=== PATIENT | female | born 1965 | race African-American/Black ===

== ENCOUNTER 2020-11-27 15:33 | Outpatient (CLI) | payer OTHER | END 2020-11-27 15:34 | disposition home or self-care (01) | LOC: DTY/OP 15:33 | PROVIDERS: ATTEND Surgery | DX: E66.01 Morbid (severe) obesity due to excess calories (principal) | CPT/HCPCS: 97802 ==

== ENCOUNTER 2020-12-01 14:48 | Outpatient (CLI) | payer OTHER | END 2020-12-01 14:49 | disposition home or self-care (01) | LOC: DTY/OP 14:48 | PROVIDERS: ATTEND Surgery | DX: E66.01 Morbid (severe) obesity due to excess calories (principal) | CPT/HCPCS: 97802 ==

== ENCOUNTER 2020-12-03 15:16 | Outpatient (CLI) | payer OTHER | END 2020-12-03 15:17 | disposition home or self-care (01) | LOC: DTY/OP 15:16 | PROVIDERS: ATTEND Surgery | DX: E66.01 Morbid (severe) obesity due to excess calories (principal) | CPT/HCPCS: 97802 ==

== ENCOUNTER 2020-12-11 09:48 | Outpatient (CLI) | payer OTHER | END 2020-12-11 09:49 | disposition home or self-care (01) | LOC: DTY/OP 09:48 | PROVIDERS: ATTEND Surgery | DX: E66.01 Morbid (severe) obesity due to excess calories (principal) | CPT/HCPCS: 97802 ==

== ENCOUNTER 2020-12-14 15:17 | Outpatient (CLI) | payer OTHER | END 2020-12-14 15:18 | disposition home or self-care (01) | LOC: DTY/OP 15:17 | PROVIDERS: ATTEND Surgery | DX: E66.01 Morbid (severe) obesity due to excess calories (principal) | CPT/HCPCS: 97802 ==

== ENCOUNTER 2020-12-23 11:24 | Outpatient (CLI) | payer OTHER | END 2020-12-23 11:25 | disposition home or self-care (01) | LOC: DTY/OP 11:24 | PROVIDERS: ATTEND Surgery | DX: E66.01 Morbid (severe) obesity due to excess calories (principal) | CPT/HCPCS: 97802 ==

== ENCOUNTER 2020-12-25 15:14 | Outpatient (CLI) | payer OTHER | END 2020-12-25 15:15 | disposition home or self-care (01) | LOC: DTY/OP 15:14 | PROVIDERS: ATTEND Surgery | DX: E66.01 Morbid (severe) obesity due to excess calories (principal) | CPT/HCPCS: 97802 ==

== ENCOUNTER 2020-12-29 13:44 | Outpatient (CLI) | payer OTHER | END 2020-12-29 13:45 | disposition home or self-care (01) | LOC: DTY/OP 13:44 | PROVIDERS: ATTEND Surgery | DX: E66.01 Morbid (severe) obesity due to excess calories (principal) | CPT/HCPCS: 97802 ==

== ENCOUNTER 2020-12-31 14:13 | Outpatient (CLI) | payer OTHER | END 2020-12-31 14:14 | disposition home or self-care (01) | LOC: DTY/OP 14:13 | PROVIDERS: ATTEND Surgery | DX: E66.01 Morbid (severe) obesity due to excess calories (principal) | CPT/HCPCS: 97802 ==

== ENCOUNTER 2021-01-08 14:49 | Outpatient (CLI) | payer OTHER | END 2021-01-08 14:50 | disposition home or self-care (01) | LOC: DTY/OP 14:49 | PROVIDERS: ATTEND Surgery | DX: E66.01 Morbid (severe) obesity due to excess calories (principal) | CPT/HCPCS: 97802 ==

== ENCOUNTER 2021-02-04 09:01 | Outpatient (CLI) | payer OTHER, BC | END 2021-02-04 09:02 | disposition home or self-care (01) | LOC: LABBT 09:01 | PROVIDERS: ATTEND Surgery | DX: Z01.818 Encounter for other preprocedural examination (principal); E66.01 Morbid (severe) obesity due to excess calories; Z20.822 Contact with and (suspected) exposure to COVID-19 | CPT/HCPCS: 71046; 80053; 83036; 84703; 85025; 87635; 93005; 93010; U0003; U0005 ==

== ENCOUNTER 2021-02-04 11:45 | Inpatient (IN) | payer OTHER ==
[2021-02-09] MEDS ORDERED: Acetaminophen 500 MG TAB ONE (09:18)
[2021-02-09] MEDS ORDERED: Heparin 5,000 UNITS/ML VIAL ONE (09:49)
[2021-02-09] MEDS ORDERED: Bupivacaine 0.25% HCL 30 ML VIAL ONE (10:26)
[2021-02-09] MEDS ORDERED: XYLOCAINE 2%-EPI 1:100,000 20 ML VIAL ONE (10:26)
[2021-02-09] MEDS ORDERED: Midazolam HCl 2 mg/2 ml Vial ONE ×2 (10:28→10:43)
[2021-02-09] MEDS ORDERED: Fentanyl 250 MCG/5 ML VIAL ONE (10:28)
[2021-02-09] MEDS ORDERED: SUGAMMADEX SODIUM 500 MG/5 ML VIAL ONE (10:28)
[2021-02-09] MEDS ORDERED: Dexamethasone 20 MG/5 ML VIAL ONE (10:50)
[2021-02-09] MEDS ORDERED: PHENYLEPHRINE-NS 100 MCG/ML 10 ML SYRINGE ONE (10:50)
[2021-02-09] MEDS ORDERED: Lidocaine 1% PF 5 ML VIAL ONE (10:50)
[2021-02-09] MEDS ORDERED: Ondansetron PF 4 MG/2 ML Vial ONE (10:50)
[2021-02-09] MEDS ORDERED: PROPOFOL 200 MG/20 ML VIAL ONE (10:50)
[2021-02-09] MEDS ORDERED: Rocuronium Bromide 10 MG/ML (10ML VIAL) ONE (10:50)
[2021-02-09] MEDS ORDERED: ePHEDrine 50 MG/ML VIAL ONE ×2 (10:50→11:24)
[2021-02-09] MEDS ORDERED: Glycopyrrolate 0.2 MG/ML 5 ML SYRINGE ONE (10:50)
[2021-02-09] MEDS ORDERED: Ketorolac Tromethamine 30 MG/ML VIAL ONE ×2 (10:50→17:57)
[2021-02-09] MEDS ORDERED: Propofol 500 MG/50 ML VIAL ONE (11:24)
[2021-02-09] MEDS ORDERED: Ondansetron HCl/PF 4 MG/2 ML Vial IVP PRN ×2 (12:26→13:07)
[2021-02-09] MEDS ORDERED: Promethazine HCl 25 MG/ML VIAL SLOW IVP PRN ×2 (12:26→13:07)
[2021-02-09] MEDS ORDERED: Promethazine HCl 25 MG/ML VIAL IM PRN ×4 (12:26→18:37)
[2021-02-09] MEDS ORDERED: diphenhydrAMINE 50 MG/ML VIAL IM PRN (13:07)
[2021-02-09] MEDS ORDERED: Naloxone HCl 0.4 mg/ml Vial IV PRN (13:07)
[2021-02-09] MEDS ORDERED: Ketorolac Tromethamine 30 MG/ML VIAL IVP PRN (13:07)
[2021-02-09] MEDS ORDERED: diphenhydrAMINE 50 MG/ML VIAL IVP PRN ×2 (13:07→18:37)
[2021-02-09] MEDS ORDERED: fentaNYL Citrate/PF 2,000 MCG in Sodium Chloride 0.9% 60 ML IV PRN (13:07)
[2021-02-09] MEDS ORDERED: Ondansetron PF 4 MG/2 ML Vial IVP PRN ×2 (13:07→18:37)
[2021-02-09] MEDS ORDERED: Zolpidem Tartrate 5 MG TAB PO PRN (13:07)
[2021-02-09] MEDS ORDERED: diphenhydrAMINE 25 MG CAP PO PRN (13:07)
[2021-02-09] MEDS ORDERED: Communication Order-Pharmacy FS SCH (13:15)
[2021-02-09] MEDS ORDERED: Dextrose 5% in Water 1,000 ML IV PRN (18:37)
[2021-02-09] MEDS ORDERED: hydrALAZINE 20 MG/ML VIAL SLOW IVP PRN (18:37)
[2021-02-09] MEDS ORDERED: Hydrocodone-Acetamin 15 ML UDCUP PO PRN ×2 (18:37→18:41)
[2021-02-09] MEDS ORDERED: Dextrose 50% Abboject 50 ML SYRINGE SLOW IVP PRN (18:37)
[2021-02-09] MEDS ORDERED: D5 1/2 NS w/20 mEq KCL 1,000 ML IV SCH (18:37)
[2021-02-09] MEDS: Ketorolac Tromethamine 30 MG/ML VIAL IVP SCH (18:38)
[2021-02-09 19:37] VITALS: BMI 45.5
[2021-02-09] MEDS ORDERED: Enoxaparin Sodium 40 MG/0.4 ML SYRINGE SC SCH (21:00)
[2021-02-10] MEDS: Ketorolac Tromethamine 30 MG/ML VIAL IVP SCH ×2 (01:05→05:51)
[2021-02-10 05:16] LABS: #Lymphocytes 1.2 thou/uL (1.20-3.40); #Monocytes 0.9 thou/uL (0.11-0.59); #Neutrophils 9.4 thou/uL (1.40-6.50); %Eosinophils 0.1 % (0.0-10.0); %Lymphocytes 10.6 % (21.0-51.0); %Monocytes 7.5 % (0.0-10.0); %Neutrophils 81.8 % (42.0-75.0); Hemoglobin 11.6 g/dL (12.0-16.0); Mean Corpuscular HGB CONC 33.3 g/dL (32.0-36.0); Mean Corpuscular Hemoglobin 28.2 pg (27.0-31.0); Mean Corpuscular Volume 84.8 fL (78.0-98.0); Mean Platelet Volume 7.7 fL (7.4-10.4); Platelet Count 298 thou/uL (130-400); RBC Distribution Width 13.2 % (11.5-14.5); White Blood Cell (WBC) Count 11.5 thou/uL (4.8-10.8)
[2021-02-10 05:31] LABS: Anion Gap 11 mmol/L (10-20); BUN (Urea Nitrogen) 8 mg/dL (9.8-20.1); Calc. Creatinine Clearance 203 mL/min (70-130); Calcium 8.5 mg/dL (7.8-10.44); Carbon Dioxide 25 mmol/L (22-29); Chloride 105 mmol/L (98-107); Glucose 134 mg/dL (70-105); Sodium 137 mmol/L (136-145)
[2021-02-10 08:10] VITALS: TEMP 98.8
[2021-02-10] MEDS ORDERED: PARoxetine 20 MG TAB PO SCH (09:00)
[2021-02-10] MEDS ORDERED: Amlodipine 5 MG TAB PO SCH (09:00)
[2021-02-10] MEDS ORDERED: Pantoprazole 40 MG VIAL IVP SCH (09:00)
[2021-02-10] MEDS ORDERED: Carvedilol 6.25 MG TAB PO SCH (09:00)
[2021-02-10 12:02] VITALS: BP 151/89
== END 2021-02-10 14:50 | disposition home or self-care (01) | DRG 621 ==
LOC: SURG A 02-09 08:42 → SURG B 02-09 18:33
PROVIDERS: ADMIT Surgery; ATTEND Surgery
PROC: 0D164ZA Bypass Stomach to Jejunum, Percutaneous Endoscopic Approach (ICD-10-PCS; principal; 2021-02-09)
PROC: 0BQT4ZZ Repair Diaphragm, Percutaneous Endoscopic Approach (ICD-10-PCS; 2021-02-09)
PROC: 0DJ08ZZ Inspection of Upper Intestinal Tract, Via Natural or Artificial Opening Endoscopic (ICD-10-PCS; 2021-02-09)
DX: E66.01 Morbid (severe) obesity due to excess calories (principal); Z68.42 Body mass index [BMI] 45.0-49.9, adult; Z20.822 Contact with and (suspected) exposure to COVID-19; I10 Essential (primary) hypertension; K21.9 Gastro-esophageal reflux disease without esophagitis; R13.10 Dysphagia, unspecified; F41.9 Anxiety disorder, unspecified; G43.909 Migraine, unspecified, not intractable, without status migrainosus; K44.9 Diaphragmatic hernia without obstruction or gangrene; Z79.899 Other long term (current) drug therapy; Z98.51 Tubal ligation status
CPT/HCPCS: 36415; 80048; 85025; 94760; C9113; J0690; J1100; J1644; J1650; J1885; J2250; J2405; J2704; J3010; J3480; J3490; S0020

== ENCOUNTER 2024-04-10 16:00 | Outpatient (CLI) | payer BC | END 2024-04-10 16:01 | disposition home or self-care (01) | LOC: SLEEPLAB 16:00 | PROVIDERS: ATTEND Internal Medicine | DX: G47.33 Obstructive sleep apnea (adult) (pediatric) (principal); R53.83 Other fatigue; F41.9 Anxiety disorder, unspecified; E66.9 Obesity, unspecified; R06.83 Snoring; G47.00 Insomnia, unspecified; I49.9 Cardiac arrhythmia, unspecified; I10 Essential (primary) hypertension; Z68.36 Body mass index [BMI] 36.0-36.9, adult | CPT/HCPCS: 95800 ==

== ENCOUNTER 2025-07-24 07:13 | Outpatient (CLI) | payer BC ==
[2025-07-24] MEDS ORDERED: Iopamidol 370 76% 100 ML VIAL ONE (12:43)
== END 2025-07-24 07:14 | disposition home or self-care (01) ==
LOC: CT 07:13
PROVIDERS: ATTEND Internal Medicine
DX: C50.311 Malignant neoplasm of lower-inner quadrant of right female breast (principal)
CPT/HCPCS: 71260; 74177; Q9967

== ENCOUNTER 2025-11-17 07:38 | Outpatient (CLI) | payer BC | END 2025-11-17 07:39 | disposition home or self-care (01) | LOC: SCSMAMMO 07:38 → SCSBT 07:39 | PROVIDERS: ATTEND Internal Medicine | DX: C50.311 Malignant neoplasm of lower-inner quadrant of right female breast (principal); M85.851 Other specified disorders of bone density and structure, right thigh; M85.852 Other specified disorders of bone density and structure, left thigh; Z79.818 Long term (current) use of other agents affecting estrogen receptors and estrogen levels | CPT/HCPCS: 77080 ==